=== PATIENT | male | born 1990 | race Caucasian/White ===

== ENCOUNTER 2016-10-05 23:16 | Emergency (ER) | payer SELFPAY ==
[2016-10-05] MEDS ORDERED: Morphine INJ* 4 MG/ML 1 ML CARPUJECT IV ONE (23:42)
[2016-10-05] MEDS ORDERED: Orphenadrine Citrate IV* 30 MG/ML 2 ML VIAL IV ONE (23:42)
[2016-10-05] MEDS ORDERED: Ketorolac INJ* 30 MG/ML 1 ML VIAL IV PUSH ONE (23:42)
[2016-10-05] MEDS ORDERED: Dexamethasone IV* 4 MG/ML 1 ML (4 MG) IV SLOW PU ONE (23:42)
[2016-10-05] MEDS ORDERED: Ondansetron INJ* 2 MG/ML VIAL ONE (23:56)
[2016-10-05] MEDS ORDERED: Ondansetron INJ* 2 MG/ML VIAL IV ONE (23:58)
[2016-10-06 00:01] LABS: Hematocrit 42 % (42-52); Hemoglobin 14.3 g/dl (14.0-18.0); Mean Corpuscular HGB Conc 34 g/dl (31-36); Mean Corpuscular Hemoglobin 30 pg (27-31); Mean Corpuscular Volume 89 fL (80-94); Mean Platelet Volume 8 um3 (7.4-10.4); Red Blood Count 4.74 10^6/ul (4.0-5.4); Red Cell Distribution Width 13 % (10.5-15); White Blood Count 10.1 10^3/ul (3.5-10.8)
[2016-10-06 00:14] LABS: ALT 128 U/L (7-52); AST 35 U/L (13-39); Albumin 4.3 g/dL (3.2-5.2); Alkaline Phosphatase 82 U/L (34-104); Anion Gap 5 mmol/L (2-11); BUN/Creatinine Ratio 11.6 (8-20); Blood Urea Nitrogen 11 mg/dL (6-24); CO2 Carbon Dioxide 32 mmol/L (22-32); Calcium 9.6 mg/dL (8.6-10.3); Chloride 99 mmol/L (101-111); EGFR African American 125.3 (>60); EGFR Non-African American 97.4 (>60); Globulin 2.9 g/dL (2-4); Glucose 77 mg/dL (70-100); Potassium 4.1 mmol/L (3.5-5.0); Sodium 136 mmol/L (133-145); Total Protein 7.2 g/dL (6.4-8.9)
[2016-10-06] MEDS ORDERED: Iohexol 300* (CONTRAST) 10 ML SDV IV ONE (00:23)
[2016-10-06 00:27] LABS: Alcohol < 10 mg/dL (<10)
[2016-10-06 02:09] VITALS: BP 119/70
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
== END 2016-10-06 02:08 | disposition home or self-care (01) ==
LOC: ED 23:16
DX: M54.5 Low back pain (principal); R51 Headache; M54.2 Cervicalgia; R10.9 Unspecified abdominal pain; S40.019A Contusion of unspecified shoulder, initial encounter; V47.6XXA Car passenger injured in collision with fixed or stationary object in traffic accident, initial encounter; Y93.9 Activity, unspecified; Y92.9 Unspecified place or not applicable; F17.210 Nicotine dependence, cigarettes, uncomplicated
CPT/HCPCS: 36415; 70450; 72125; 72131; 74177; 80053; 80320; 85025; 96374; 96375; 99283; G0480; J1100; J1885; J2270; J2360; J2405; Q9967

== ENCOUNTER 2016-12-14 16:03 | Emergency (ER) | payer OTHER ==
[2016-12-14 17:27] VITALS: BP 106/53
== END 2016-12-14 18:09 | disposition left against medical advice (07) ==
LOC: ED 16:03
DX: K59.00 Constipation, unspecified (principal); K92.0 Hematemesis

== ENCOUNTER 2017-01-19 08:54 | Emergency (ER) | payer OTHER ==
[2017-01-19] MEDS ORDERED: NS 0.9% 1000 ML* 1,000 ML IV ONE (09:41)
[2017-01-19 10:40] LABS: Hematocrit 41 % (42-52); Hemoglobin 14.2 g/dl (14.0-18.0); Mean Corpuscular HGB Conc 34 g/dl (31-36); Mean Corpuscular Hemoglobin 31 pg (27-31); Mean Corpuscular Volume 90 fL (80-94); Mean Platelet Volume 8 um3 (7.4-10.4); Red Cell Distribution Width 14 % (10.5-15); White Blood Count 9.5 10^3/ul (3.5-10.8)
[2017-01-19 10:52] LABS: ALT 218 U/L (7-52); AST 72 U/L (13-39); Albumin 4.5 g/dL (3.2-5.2); Alkaline Phosphatase 79 U/L (34-104); Anion Gap 9 mmol/L (2-11); BUN/Creatinine Ratio 14.8 (8-20); Blood Urea Nitrogen 12 mg/dL (6-24); C Reactive Protein 4.69 mg/L (< 5.00); CO2 Carbon Dioxide 22 mmol/L (22-32); Calcium 9.7 mg/dL (8.6-10.3); Chloride 106 mmol/L (101-111); EGFR African American 150.6 (>60); EGFR Non-African American 117.1 (>60); Globulin 2.8 g/dL (2-4); Glucose 115 mg/dL (70-100); Potassium 4.1 mmol/L (3.5-5.0); Sodium 137 mmol/L (133-145); Total Protein 7.3 g/dL (6.4-8.9)
[2017-01-19 11:09] LABS: Acetaminophen < 15 mcg/mL; Alcohol < 10 mg/dL (<10); Salicylate < 2.50 mg/dL (<30)
[2017-01-19 11:35] LABS: Urine Bacteria Absent (Absent); Urine Bilirubin Negative (Negative); Urine Glucose Negative (Negative); Urine Nitrite Negative (Negative)
[2017-01-19 12:04] LABS: Benzodiazepine Urine Screen None Detected (None Detect)
--- NOTE | 2017-01-19 17:35 | ED ---
Ryan Bhatti Billy, scribed for David Martinez MD on 01/19/17 at 0941 . Abdominal Pain/Male - HPI Summary HPI Summary: Patient is a 26 year-old male coming to [facility] for evaluation of 1 week of diarrhea with bright red blood in the stool. He states that he feels burning, lower abdominal pain during bowel movements, and he will intermittently feel a pressure to have a bowel movement every 10 minutes. Denies any recent traveling. He is recovering from a drug addiction problem and is about one month sober. 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 He had a syncopal episode last week. - History of Current Complaint Chief Complaint: EDAbdPain Stated Complaint: BLOOD IN STOOL Time Seen by Provider: 01/19/17 09:21 Hx Obtained From: Patient Onset/Duration: Gradual Onset, Lasting Days, Still Present Timing: Intermittent Severity Initially: Moderate Severity Currently: Moderate Pain Intensity: 6 Pain Scale Used: 0-10 Numeric Location: Discrete At: RLQ, Discrete At: LLQ Radiates: No Character: Burning Aggravating Factor(s): Nothing Alleviating Factor(s): Nothing Associated Signs And Symptoms: Positive: Blood in Stool, Diarrhea - Allergies/Home Medications Allergies/Adverse Reactions: Allergies Allergy/AdvReac Type Severity Reaction Status Date / Time No Known Allergies Allergy Verified 01/19/17 09:22 Home Medications: Home Medications Albuterol HFA INHALER* [Ventolin HFA Inhaler*] 2 puff INH Q4H 01/19/17 [History Confirmed 01/19/17] clonazePAM TAB(*) [Klonopin TAB(*)] 1 tab PO DAILY 01/19/17 [History Confirmed 01/19/17] PMH/Surg Hx/FS Hx/Imm Hx Endocrine/Hematology History: Denies: Hx Anticoagulant Therapy, Hx Diabetes, Hx Thyroid Disease Cardiovascular History: Denies: Hx Congestive Heart Failure, Hx Deep Vein Thrombosis, Hx Hypertension , Hx Myocardial Infarction, Hx Pacemaker/ICD Respiratory History: Reports: Hx Asthma - He has used albuteral MDI prn since age 18. Denies: Hx Chronic Obstructive Pulmonary Disease (COPD), Hx Lung Cancer, Hx Pneumonia, Hx Pulmonary Embolism GI History: Denies: Hx Gall Bladder Disease, Hx Gastrointestinal Bleed, Hx Ulcer, Hx Urosepsis History: Denies: Hx Kidney Stones, Hx Renal Disease Sensory History: Denies: Hx Hearing Aid Neurological History: Denies: Hx Dementia, Hx Migraine, Hx Seizures, Hx Transient Ischemic Attacks (TIA) Psychiatric History: Reports: Hx Anxiety, Hx Depression Denies: Hx Panic Disorder, Hx Schizophrenia, Hx Bipolar Disorder - Surgical History Surgery Procedure, Year, and Place: right inguinal hernia Infectious Disease History: No Infectious Disease History: Denies: Hx Clostridium Difficile, Hx Hepatitis, Hx Human Immunodeficiency Virus (HIV), Hx of Known/Suspected MRSA, Hx Shingles, Hx Tuberculosis, Hx Known/ Suspected VRE, Hx Known/Suspected VRSA, History Other Infectious Disease, Traveled Outside the [place] in Last 30 Days - Family History Known Family History: Positive: Cardiac Disease, Hypertension Negative: Diabetes - Social History Alcohol Use: None Substance Use Type: Reports: Heroin, Marijuana, Other Substance Use Comment - Amount & Last Used: HX of Snorting Heroin, Marijuana, and use of Klonopin - stopped 12/18/16 tina Smoking Status (MU): Former Smoker Type: Cigarettes, Smokeless Tobacco Amount Used/How Often: 1 can per day 2 cigarettes/day Length of Time of Smoking/Using Tobacco: 7 years Have You Smoked in the Last Year: Yes Review of Systems Negative: Fever Positive: Abdominal Pain, Diarrhea, Other - blood in the stool Positive: Other - chronic lower back pain Positive: Syncope Positive: Depressed All Other Systems Reviewed And Are Negative: Yes Physical Exam Triage Information Reviewed: Yes Vital Signs On Initial Exam: Initial Vitals Temp Pulse Resp BP Pulse Ox 98.5 F 86 16 110/83 100 01/19/17 08:56 01/19/17 08:56 01/19/17 08:56 01/19/17 08:56 01/19/17 08:56 Vital Signs Reviewed: Yes Appearance: Positive: Well-Appearing, No Pain Distress Skin: Positive: Warm, Skin Color Reflects Adequate Perfusion, Dry, Other - Scratches on bilateral volar forearms. There are also superficial scratches on his abdomen. Head/Face: Positive: Normal Head/Face Inspection Eyes: Positive: Normal ENT: Positive: Normal ENT inspection Neck: Positive: Supple, Nontender Respiratory/Lung Sounds: Positive: Clear to Auscultation, Breath Sounds Present Cardiovascular: Positive: RRR Abdomen Description: Positive: Soft, Other: - Mild suprapubic tenderness. Musculoskeletal: Positive: Normal Neurological: Positive: Normal, Sensory/Motor Intact, Alert, Oriented to Person Place, Time Psychiatric: Positive: Affect/Mood Appropriate - Watson Coma Scale Coma Scale Total: 15 Diagnostics - Vital Signs Vital Signs Temp Pulse Resp BP Pulse Ox 01/19/17 09:13 98.6 F 84 16 135/71 97 01/19/17 08:56 98.5 F 86 16 110/83 100 - Laboratory Lab Results: Lab Results 01/19/17 01/19/17 01/19/17 Range/Units 10:16 10:16 11:10 WBC 9.5 (3.5-10.8) 10^3/ul RBC 4.60 (4.0-5.4) 10^6/ul Hgb 14.2 (14.0-18.0) g/dl Hct 41 L (42-52) % MCV 90 (80-94) fL MCH 31 (27-31) pg MCHC 34 (31-36) g/dl RDW 14 (10.5-15) % Plt Count 282 (150-450) 10^3/ul MPV 8 (7.4-10.4) um3 Neut % (Auto) 72.3 (38-83) % Lymph % (Auto) 21.1 L (25-47) % Ventura % (Auto) 5.4 (1-9) % Eos % (Auto) 0.8 (0-6) % Baso % (Auto) 0.4 (0-2) % Absolute Neuts (auto) 6.9 (1.5-7.7) 10^3/ul Absolute Lymphs (auto) 2.0 (1.0-4.8) 10^3/ul Absolute Monos (auto) 0.5 (0-0.8) 10^3/ul Absolute Eos (auto) 0.1 (0-0.6) 10^3/ul Absolute Basos (auto) 0 (0-0.2) 10^3/ul Absolute Nucleated RBC 0.01 10^3/ul Nucleated RBC % 0.1 Sodium 137 (133-145) mmol/L Potassium 4.1 (3.5-5.0) mmol/L Chloride 106 (101-111) mmol/L Carbon Dioxide 22 (22-32) mmol/L Anion Gap 9 (2-11) mmol/L BUN 12 (6-24) mg/dL Creatinine 0.81 (0.67-1.17) mg/dL Est GFR ( Amer) 150.6 (>60) Est GFR (Non-Af Amer) 117.1 (>60) BUN/Creatinine Ratio 14.8 (8-20) Glucose 115 H (70-100) mg/dL Calcium 9.7 (8.6-10.3) mg/dL Total Bilirubin 0.60 (0.2-1.0) mg/dL AST 72 H (13-39) U/L ALT 218 H (7-52) U/L Alkaline Phosphatase 79 (34-104) U/L C-Reactive Protein 4.69 (< 5.00) mg/L Total Protein 7.3 (6.4-8.9) g/dL Albumin 4.5 (3.2-5.2) g/dL Globulin 2.8 (2-4) g/dL Albumin/Globulin Ratio 1.6 (1-3) TSH 0.70 (0.34-5.60) mcIU/mL Urine Color Yellow Urine Appearance Clear Urine pH 7.0 (5-9) Ur Specific Whiting 1.014 (1.010-1.030) Urine Protein Negative (Negative) Urine Ketones Negative (Negative) Urine Blood 1+ H (Negative) Urine Nitrate Negative (Negative) Urine Bilirubin Negative (Negative) Urine Urobilinogen Negative (Negative) Ur Leukocyte Esterase Negative (Negative) Urine WBC (Auto) Absent (Absent) Urine RBC (Auto) 1+(3-5/hpf) H (Absent) Urine Bacteria Absent (Absent) Urine Glucose Negative (Negative) Salicylates < 2.50 (<30) mg/dL Urine Opiates Screen (None Detect) Acetaminophen < 15 mcg/mL Ur Barbiturates Screen (None Detect) Ur Phencyclidine Scrn (None Detect) Ur Amphetamines Screen (None Detect) U Benzodiazepines Scrn (None Detect) Urine Cocaine Screen (None Detect) U Cannabinoids Screen (None Detect) Serum Alcohol < 10 (<10) mg/dL 01/19/17 Range/Units 11:10 WBC (3.5-10.8) 10^3/ul RBC (4.0-5.4) 10^6/ul Hgb (14.0-18.0) g/dl Hct (42-52) % MCV (80-94) fL MCH (27-31) pg MCHC (31-36) g/dl RDW (10.5-15) % Plt Count (150-450) 10^3/ul MPV (7.4-10.4) um3 Neut % (Auto) (38-83) % Lymph % (Auto) (25-47) % Ventura % (Auto) (1-9) % Eos % (Auto) (0-6) % Baso % (Auto) (0-2) % Absolute Neuts (auto) (1.5-7.7) 10^3/ul Absolute Lymphs (auto) (1.0-4.8) 10^3/ul Absolute Monos (auto) (0-0.8) 10^3/ul Absolute Eos (auto) (0-0.6) 10^3/ul Absolute Basos (auto) (0-0.2) 10^3/ul Absolute Nucleated RBC 10^3/ul Nucleated RBC % Sodium (133-145) mmol/L Potassium (3.5-5.0) mmol/L Chloride (101-111) mmol/L Carbon Dioxide (22-32) mmol/L Anion Gap (2-11) mmol/L BUN (6-24) mg/dL Creatinine (0.67-1.17) mg/dL Est GFR ( Amer) (>60) Est GFR (Non-Af Amer) (>60) BUN/Creatinine Ratio (8-20) Glucose (70-100) mg/dL Calcium (8.6-10.3) mg/dL Total Bilirubin (0.2-1.0) mg/dL AST (13-39) U/L ALT (7-52) U/L Alkaline Phosphatase (34-104) U/L C-Reactive Protein (< 5.00) mg/L Total Protein (6.4-8.9) g/dL Albumin (3.2-5.2) g/dL Globulin (2-4) g/dL Albumin/Globulin Ratio (1-3) TSH (0.34-5.60) mcIU/mL Urine Color Urine Appearance Urine pH (5-9) Ur Specific Whiting (1.010-1.030) Urine Protein (Negative) Urine Ketones (Negative) Urine Blood (Negative) Urine Nitrate (Negative) Urine Bilirubin (Negative) Urine Urobilinogen (Negative) Ur Leukocyte Esterase (Negative) Urine WBC (Auto) (Absent) Urine RBC (Auto) (Absent) Urine Bacteria (Absent) Urine Glucose (Negative) Salicylates (<30) mg/dL Urine Opiates Screen None detected (None Detect) Acetaminophen mcg/mL Ur Barbiturates Screen None detected (None Detect) Ur Phencyclidine Scrn None detected (None Detect) Ur Amphetamines Screen None detected (None Detect) U Benzodiazepines Scrn None detected (None Detect) Urine Cocaine Screen None detected (None Detect) U Cannabinoids Screen Presumptive positive H (None Detect) Serum Alcohol (<10) mg/dL Result Diagrams: 01/19/17 10:16 01/19/17 10:16 Lab Statement: Any lab studies that have been ordered have been reviewed, and results considered in the medical decision making process. Re-Evaluation - Re-Evaluation First Eval Re-Evaluation Time: 13:02 Abdominal Pain Fem Course/Dx - Course Course Of Treatment: Mr. Marquez's W/U was all negative and he was medically cleared for MHE at 1055. They spoke with him and felt that he was not an acute risk and I agree. - Diagnoses Provider Diagnoses: PTSD (post-traumatic stress disorder) Discharge - Discharge Plan Condition: Stable Disposition: HOME The documentation as recorded by the Ryan inchols Billy accurately reflects the service I personally performed and the decisions made by me, David Martinez MD.
[2017-01-19 17:44] VITALS: BP 146/69
== END 2017-01-19 18:06 | disposition home or self-care (01) ==
LOC: ED 08:54
DX: R10.9 Unspecified abdominal pain (principal); R19.7 Diarrhea, unspecified; M54.5 Low back pain; R55 Syncope and collapse; F32.9 Major depressive disorder, single episode, unspecified
CPT/HCPCS: 36415; 80053; 80307; 80320; 80329; 81003; 81015; 82270; 83630; 84443; 85025; 86140; 99282; G0480

== ENCOUNTER 2017-04-12 22:20 | Inpatient (IN) | payer OTHER ==
[2017-04-12] MEDS ORDERED: LORazepam TAB(*) 1 MG PO ONE (22:58)
[2017-04-12 23:12] LABS: Hematocrit 44 % (42-52); Hemoglobin 14.7 g/dl (14.0-18.0); Mean Corpuscular HGB Conc 34 g/dl (31-36); Mean Corpuscular Hemoglobin 31 pg (27-31); Mean Corpuscular Volume 93 fL (80-94); Mean Platelet Volume 8 um3 (7.4-10.4); Red Cell Distribution Width 13 % (10.5-15); White Blood Count 7.1 10^3/ul (3.5-10.8)
[2017-04-12 23:20] LABS: ALT 50 U/L (7-52); AST 26 U/L (13-39); Albumin 4.6 g/dL (3.2-5.2); Alkaline Phosphatase 48 U/L (34-104); Anion Gap 6 mmol/L (2-11); BUN/Creatinine Ratio 11.5 (8-20); Blood Urea Nitrogen 12 mg/dL (6-24); CO2 Carbon Dioxide 29 mmol/L (22-32); Calcium 9.4 mg/dL (8.6-10.3); Chloride 101 mmol/L (101-111); EGFR African American 112.8 (>60); EGFR Non-African American 87.7 (>60); Globulin 3.1 g/dL (2-4); Glucose 88 mg/dL (70-100); Potassium 3.9 mmol/L (3.5-5.0); Sodium 136 mmol/L (133-145); Total Protein 7.7 g/dL (6.4-8.9)
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
[2017-04-12 23:31] LABS: Acetaminophen < 15 mcg/mL; Alcohol < 10 mg/dL (<10); Salicylate < 2.50 mg/dL (<30)
[2017-04-12 23:41] LABS: TSH (Thyroid Stimulating Horm) 0.62 mcIU/mL (0.34-5.60)
[2017-04-13] MEDS ORDERED: Al Hydrox/Mg Hydrox/Simet LIQ* 30 ML UDC PO PRN (03:00)
[2017-04-13] MEDS ORDERED: Acetaminophen TAB* 325 MG PO PRN (03:00)
[2017-04-13] MEDS ORDERED: Sertraline* 50 MG TAB PO SCH (09:00)
[2017-04-13] MEDS: Vitamin THERAPEUTIC TAB PO SCH (10:49)
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
[2017-04-13] MEDS: Prazosin CAP* 5 MG PO SCH (21:07)
[2017-04-13] MEDS: hydrOXYzine HCL TAB* 50 MG PO PRN (22:25)
[2017-04-14] MEDS: Sertraline* 100 MG TAB PO SCH (09:49)
[2017-04-14] MEDS: Vitamin THERAPEUTIC TAB PO SCH (09:49)
[2017-04-14] MEDS ORDERED: Mouth Piece, Nicotine* 1 EACH CARTRIDGE INH PRN (12:55)
[2017-04-14] MEDS: Nicotine Inhaler* 10 MG AMP INH PRN ×3 (13:35→20:52)
[2017-04-14 14:46] LABS: Benzodiazepine Urine Screen None Detected (None Detect)
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
[2017-04-14] MEDS: Prazosin CAP* 5 MG PO SCH (20:52)
[2017-04-14] MEDS: hydrOXYzine HCL TAB* 50 MG PO PRN (20:53)
[2017-04-15 07:34] VITALS: BP 93/48
[2017-04-15] MEDS: Sertraline* 100 MG TAB PO SCH (09:21)
[2017-04-15] MEDS: Vitamin THERAPEUTIC TAB PO SCH (09:22)
[2017-04-15] MEDS: Nicotine Inhaler* 10 MG AMP INH PRN (09:24)
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
== END 2017-04-15 11:20 | disposition home or self-care (01) | DRG 882 ==
LOC: ED 22:20 → BSU 04-13 02:20
PROVIDERS: ADMIT Psychiatry & Neurology Psychiatry; ATTEND Psychiatry & Neurology Psychiatry
DX: F43.10 Post-traumatic stress disorder, unspecified (principal); F32.9 Major depressive disorder, single episode, unspecified; F12.90 Cannabis use, unspecified, uncomplicated; F15.90 Other stimulant use, unspecified, uncomplicated; F41.9 Anxiety disorder, unspecified; Z56.0 Unemployment, unspecified; Z91.410 Personal history of adult physical and sexual abuse; Z91.5 Personal history of self-harm; M54.9 Dorsalgia, unspecified; J45.909 Unspecified asthma, uncomplicated; Z82.49 Family history of ischemic heart disease and other diseases of the circulatory system; F17.210 Nicotine dependence, cigarettes, uncomplicated
CPT/HCPCS: 36415; 80053; 80307; 80320; 80329; 84443; 85025; 99222; 99231; 99238; A9270-GY; G0480